=== PATIENT | male | born 1955 | race Two or more races ===

== ENCOUNTER 2024-08-20 11:50 | Emergency (ER) | payer OTHER ==
[~2024-08-20] VITALS: Ht 172.7 cm; Wt 80.7 kg
[2024-08-20] MEDS ORDERED: SYNTHROID150 MCG (12:05)
[2024-08-20] MEDS ORDERED: 0.9 % SODIUM CHLORIDE 1,000 ML IV SCH (13:15)
[2024-08-20] MEDS ORDERED: MORPHINE SULFATE 4 MG/ML VIAL IV ONE (13:15)
[2024-08-20] MEDS ORDERED: METHYLPREDNISOLONE SOD SUCC 500 MG VIAL IV ONE (13:15)
[2024-08-20] MEDS ORDERED: METHYLPREDNISOLONE SOD SUCC 125 MG VIAL ONE ×2 (13:25→13:55)
== END 2024-08-20 15:49 | disposition home or self-care (01) ==
LOC: ER 11:50
DX: M54.50 Low back pain, unspecified (principal); E03.8 Other specified hypothyroidism